=== PATIENT | male | born 1970 | race Caucasian/White ===

== ENCOUNTER → 2018-05-03 | Outpatient (CLI) | payer BC ==
[~2018-05-03] MED LIST: CYCL10TA29 PO; LEVO-85 PO; METH4TAB66 PO; OXYC-865 PO; muscle relaxer PO
[2018-05-03 11:40] LABS: LDL CHOLESTEROL 196 mg/dl
== END ==
LOC: LAB 10:04
PROVIDERS: ATTEND Family Medicine
DX: Z00.00 Encounter for general adult medical examination without abnormal findings (principal)
CPT/HCPCS: 36415; 82040; 82247; 82310; 82374; 82435; 82465; 82565; 82947; 83718; 84075; 84132; 84155; 84295; 84443; 84450; 84460; 84478; 84520; 85027

== ENCOUNTER → 2018-05-11 | Outpatient (CLI) | payer BC ==
[~2018-05-11] MED LIST changes: +BARIUM SULFATE 176 GM BTL PO ONE; +BARIUM SULFATE 340 GM POWD ONE
--- NOTE | 2018-05-11 12:19 | RADIOLOGY IMAGING REPORT ---
FACILITY: [facility] PATIENT NAME: Rashid Fisher : 1970 MR: [id number] V: [id number] EXAM DATE: ORDERING PHYSICIAN: DIMITRIOS PRASAD TECHNOLOGIST: Location: [facility] - [place] Patient: Rashid Fisher : 1970 Visit/Account:[id number] Date of Sevice: 05/11/2018 EXAMINATION: Abdominal ultrasound complete HISTORY: GERD, elevated liver enzymes COMPARISON: CT abdomen and pelvis September 14, 2016 FINDINGS: Gallbladder: No stones, wall thickening, pericholecystic fluid or sonographic Chung sign. Liver: There is a coarse echotexture to the liver although discrete masses are not seen. Common duct: Normal measuring 3.4 mm. Pancreas: Not well seen due to overlying bowel gas Spleen: Normal in size and echogenicity measuring 8.9 cm in length. Kidneys: Normal in size and echogenicity, the right measures 12.5 cm in length, and the left 10.7 cm . No hydronephrosis. Upper abdominal aorta and IVC: Negative. Ascites: None. IMPRESSION: There is a coarse echotexture to the liver although discrete masses are not seen. This can be relate d to fatty infiltration or other infiltrative process Pancreas not well seen due to overlying bowel gas Report Dictated By: Paula Butler MD at 05/11/2018 12:12 PM Report E-Signed By: Paula Butler MD at 05/11/2018 12:14 PM WSN:[email or web address]
--- NOTE | 2018-05-11 13:33 | RADIOLOGY IMAGING REPORT ---
FACILITY: [facility] - [place] PATIENT NAME: Rashid Fisher : 1970 MR: [id number] V: [id number] EXAM DATE: ORDERING PHYSICIAN: DIMITRIOS PRASAD TECHNOLOGIST: Location: [facility] [place] Patient: Rashid Fisher : 1970 Visit/Account:[id number] Date of Sevice: 05/11/2018 CHEST PA LAT HISTORY: History of smoking now with cough and chest pain. COMPARISON: Chest x-ray September 14, 2016. FINDINGS: Cardiomediastinal contours: The heart size is normal. Lungs and pleura: There is no finding of an infiltrate, lymphadenopathy or pleural effusion. There m ay be minimal hyperinflation. Bones/soft tissues: There are no findings of a fracture. IMPRESSION: No active disease in the chest. Report Dictated By: James Gann MD at 05/11/2018 1:26 PM Report E-Signed By: James Gann MD at 05/11/2018 1:26 PM WSN:[email or web address]
--- NOTE | 2018-05-11 16:58 | RADIOLOGY IMAGING REPORT ---
FACILITY: [facility] PATIENT NAME: Rashid Fisher : 1970 MR: [id number] V: [id number] EXAM DATE: ORDERING PHYSICIAN: DIMITRIOS PRASAD TECHNOLOGIST: Location: [facility] Patient: Rashid Fisher : 1970 Visit/Account:[id number] Date of Sevice: 05/11/2018 Exam type: XR UPPER GI SERIES W/O KUB History: GERD, elevated liver function tests Comparison: None. Findings: Double contrast esophagram was performed with thick and thin barium and air contrast. There is a sma ll to moderate size hiatal hernia with a moderate to large amount of gastroesophageal reflux. No eso phageal narrowing or mucosal erosion was identified. No abnormality of the stomach duodenal bulb or duodenal C-loop was seen the fluoroscopy dose area product was 746.07 micro-Trammell per meter squared IMPRESSION: 1. Small to moderate size hiatal hernia with a moderate to large amount of gastroesophageal reflux a lthough no evidence of esophageal narrowing or mucosal erosion. The remainder the upper GI series was unremarkable Report Dictated By: Paula Butler MD at 05/11/2018 4:52 PM Report E-Signed By: Paula Butler MD at 05/11/2018 4:54 PM WSN:[email or web address]
== END ==
LOC: US 01:41
PROVIDERS: ATTEND Family Medicine
DX: K44.9 Diaphragmatic hernia without obstruction or gangrene (principal); K21.9 Gastro-esophageal reflux disease without esophagitis; K76.0 Fatty (change of) liver, not elsewhere classified
CPT/HCPCS: 71046; 74240; 76700